=== PATIENT | female | born 1980 | race Caucasian/White ===

== ENCOUNTER → 2017-09-03 | Outpatient (CLI) | payer BC | LOC: BMCIMAGING 15:52 | PROVIDERS: ATTEND Internal Medicine | DX: J18.1 Lobar pneumonia, unspecified organism (principal) ==

== ENCOUNTER → 2018-02-09 | Outpatient (CLI) | payer BC | DX: M25.50 Pain in unspecified joint (principal); K51.90 Ulcerative colitis, unspecified, without complications | CPT/HCPCS: 73130-PO; 73562-PO ==